=== PATIENT | male | born 1980 | race Caucasian/White ===

== ENCOUNTER 2021-01-27 22:38 | Emergency (ER) | payer OTHER, SELFPAY ==
--- NOTE | ~2021-01-27 | CT_ITS ---
EXAMINATION: CT abdomen pelvis wo con EXAM DATE: 01/27/2021 23:39 INDICATION: Flank pain, difficulty urinating. TECHNIQUE: Spiral CT of the abdomen and pelvis was performed without contrast. Axial, coronal and sag ittal images were reviewed. The dose-length product (DLP) for this examination was 336.83 mGy-cm. T he exposure was tailored according to patient size (auto mA exposure control), and iterative reconstr uction (ASIR) was used as additional dose reduction technique. There is no prior study for compariso n. FINDINGS: There is a punctate 1 mm stone in the left ureterovesicular junction with mild obstructive nephropathy. No other genitourinary calcifications. The prostate is unremarkable. The bladder is un remarkable. The liver, spleen, adrenal glands and pancreas are unremarkable. The gallbladder is con tracted but otherwise unremarkable. There is no retroperitoneal or pelvic lymphadenopathy. Small u mbilical fat-containing hernia. The appendix is normal. The stomach and small bowel are unremarkable. There is expected amount of c olonic stool. No free intraperitoneal gas. The heart is normal in size. There are no pericardial or pleural effusions. The lung bases are unremarkable. There are no osteoblastic or osteolytic les ions identified. IMPRESSION: 1. Punctate left UVJ stone, mild obstructive nephropathy. Reviewed, dictated and finalized at location G.
[2021-01-27 22:40] VITALS: BP 162/89; PULSE 89; RESP 24; TEMP 36.7; O2SAT 100
[2021-01-27 22:51] VITALS: BP 169/102; PULSE 70; RESP 19; O2SAT 97
--- NOTE | 2021-01-27 22:53 | ECG_ITS ---
Measurements Intervals [place] Rate: 68 P: 35 CT: 170 QRS: 41 QRSD: 106 T: 36 QT: 362 QTc: 386 Interpretive Statements SINUS RHYTHM BASELINE ARTIFACT- V5 NORMAL ECG Electronically Signed On 01-29-2021 7:28:19 CDT by Gilbert Gray D.O.
[2021-01-27] MEDS: ONDANSETRON INJ 4 MG/2 ML VIAL IV PUSH (23:42)
[2021-01-27] MEDS: SODIUM CHLORIDE 0.9% IV 1,000 ML 999 ML IV CONT (23:42)
[2021-01-27] MEDS: KETOROLAC 30 MG/ML VIAL (*BKC) IV PUSH (23:43)
[2021-01-27 23:47] LABS: Basophils Percent Auto 0.4 % (0.2-1.2); Eosinophils Absolute Auto 0.1 K/mm3 (0-0.3); Eosinophils Percent Auto 0.8 % (0-4.4); Hemoglobin 15.6 g/dL (14.0-18.0); Immature Granulocyte Absolute 0.07 K/mm3 (0.00-0.031); Immature Granulocyte Percent A 0.7 % (0-0.5); Lymphocytes Absolute Auto 1.93 K/mm3 (0.9-3.2); Lymphocytes Percent Auto 18.7 % (18.3-44.2); Mean Corpuscular HGB Conc 34.7 g/dl (32-36); Mean Corpuscular Hemoglobin 32.3 pg (26-34); Mean Corpuscular Volume 93.2 fl (80-100); Mean Platelet Volume 9.4 fl (7.4-10.4); Monocytes Absolute Auto 0.6 K/mm3 (0.1-0.6); Monocytes Percent Auto 6.2 % (2.6-8.5); Neutrophils Absolute Auto 7.6 K/mm3 (1.3-6.7); Neutrophils Percent Auto 73.2 % (45.5-73.1); Platelet Count Result 253 k/mm3 (150-375); Red Blood Count 4.83 M/mm3 (4.6-6.20); Red Cell Distribution Width 12.6 % (11.5-14.5); White Blood Count 10.3 K/mm3 (4.5-10.0)
[2021-01-28 00:02] LABS: Anion Gap 12 mmol/L (8-16); Blood Urea Nitrogen 19 mg/dL (9-20); Calcium 9.7 mg/dL (8.4-10.2); Carbon Dioxide 20 mmol/L (22-30); Chloride 106 mmol/L (98-107); Estimated CRCL calculation 116 ml/min; Estimated Glomerular Filt Rate > 60; Glucose 135 mg/dL (75-110); Potassium 3.8 mmol/L (3.4-5.0); Sodium 138 mmol/L (137-145)
[2021-01-28 00:29] VITALS: BP 133/79; PULSE 75; RESP 18; O2SAT 99
[2021-01-28 00:32] LABS: Add Urine Microscopic? YES; Appearance Urine Clear (Clear); Bacteria Urine Trace /hpf; Bilirubin Urine Negative (Negative); Blood Urine 2+ (Negative); Color Urine Yellow (Yellow); Glucose Urine UA Negative (Negative); Ketones Urine Negative (Negative); Leukocyte Esterase Ur Negative LEU/UL (Negative); Mucus Urine Rare /lpf; Nitrate Urine Negative (Negative); Protein Urine Negative (Negative); Specific Grav Ur 1.015 (1.001-1.035); Squamous Epithelial Cell Urine Rare /hpf (Few); Urobilinogen Urine Negative mg/dL (<2.0); WBC Urine 0-3 /hpf
--- NOTE | 2021-01-28 00:56 | ED.GENADULT ---
HPI - General Adult General Chief complaint: Abdominal Pain Stated complaint: Abdominal pain, urgency Time Seen by Provider: 01/27/21 22:44 History of Present Illness HPI narrative: Patient is a 40-year-old male who presents ER with urinary frequency. Ongoing for last several days. Spoke with his PCP and they placed him on antibiotics. Tonight he is having lower abdominal pain as well as nausea and near vasovagal episode while in triage. No fevers or chills or sweats. No chest pain or chest pressure. No alleviating factors at this time. Related Data Allergies Allergy/AdvReac Type Severity Reaction Status Date / Time No Known Allergies Allergy Unverified 02/28/15 13:48 Review of Systems Review of Systems: All systems reviewed & are unremarkable except as noted in HPI and below Constitutional: Constitutional: Denies chills and Denies fever(s) Cardiovascular: Cardiovascular: Denies chest pain and Denies radiating jaw, neck or arm pain Gastrointestinal: Gastrointestinal: Reports abdominal pain, Reports nausea and Denies vomiting Genitourinary: Genitourinary: Reports hematuria (Microscopic), Denies dysuria and Reports urinary frequency PMFSH Past Medical History Medical History (Updated 01/28/21 @ 01:00 by Jesus Alberto Edge MD) Healthy adult male Surgical History Surgical History (Updated 01/28/21 @ 00:57 by Jesus Alberto Edge MD) H/O left knee surgery Family History Family History (Updated 09/24/18 @ 09:03 by DOCTOR UNKNOWN) Father Family history of premature coronary heart disease Hypertension Family history of elevated blood lipids Mother Family history of malignant neoplasm of breast in first degree relative Social History Social History Smoking status: Current every day smoker Second hand tobacco smoke exposure: Yes Smoking end date: 07/29/07 Alcohol intake: current Exam Narrative: Exam Narrative: GENERAL: Uncomfortable-appearing, well-nourished, and in mild distress. HEAD: Normocephalic, atraumatic. EYES: PERRLA and EOMI. ENT: Mucous membranes moist. CHEST: Clear to auscultation. No respiratory distress. HEART: Regular rate and rhythm. Normal peripheral pulses. ABDOMEN: Soft, nontender, nondistended. EXTREMITIES: Normal range of motion. No edema. NEURO: Alert and oriented x3. PSYCH: Normal mood and affect. Course Course Emergency Course: Resting comfortably after medication. Discharge home with supportive care. Vital Signs Vital signs: Vital Signs Temperature 98.1 F 01/27/21 22:40 Pulse Rate 89 01/27/21 22:40 Respiratory Rate 24 H 01/27/21 22:40 Blood Pressure 162/89 H 01/27/21 22:40 Pulse Oximetry 100 01/27/21 22:40 Temperature 98.1 F 01/27/21 22:40 Pulse Rate 75 01/28/21 00:29 Respiratory Rate 18 01/28/21 00:29 Blood Pressure 133/79 01/28/21 00:29 Pulse Oximetry 99 01/28/21 00:29 Medical Decision Making Vital Signs Vital Signs: Vital Signs Temperature 98.1 F 01/27/21 22:40 Pulse Rate 89 01/27/21 22:40 Respiratory Rate 24 H 01/27/21 22:40 Blood Pressure 162/89 H 01/27/21 22:40 Pulse Oximetry 100 01/27/21 22:40 Temperature 98.1 F 01/27/21 22:40 Pulse Rate 75 01/28/21 00:29 Respiratory Rate 18 01/28/21 00:29 Blood Pressure 133/79 01/28/21 00:29 Pulse Oximetry 99 01/28/21 00:29 Lab Data Result diagrams: 01/27/21 23:39 01/27/21 23:39 Labs: Lab Results 01/27/21 01/27/21 01/28/21 Range/Units 23:39 23:39 00:16 WBC 10.3 H (4.5-10.0) K/mm3 RBC 4.83 (4.6-6.20) M/mm3 Hgb 15.6 (14.0-18.0) g/dL Hct 45.0 (42.0-52.0) % MCV 93.2 (80-100) fl MCH 32.3 (26-34) pg MCHC 34.7 (32-36) g/dl RDW 12.6 (11.5-14.5) % Plt Count 253 (150-375) k/mm3 MPV 9.4 (7.4-10.4) fl Immature Gran % (Auto) 0.7 H (0-0.5) % Neut % (Auto) 73.2 H (45.5-73.1) % Lymph % (Auto) 18.7 (18.3-44.2) % [place] % (Auto) 6.2 (2.
[2021-01-28 01:23] VITALS: BP 135/78; PULSE 77; RESP 22; O2SAT 100
== END 2021-01-28 01:25 | disposition home or self-care (01) ==
PROVIDERS: Emergency Provider Emergency Medicine; PCP Internal Medicine
DX: N13.8 Other obstructive and reflux uropathy (principal); N20.1 Calculus of ureter; Z87.891 Personal history of nicotine dependence
CPT/HCPCS: 36415; 74176; 80048; 81001; 85025; 93005; 96361; 96374; 96375; 99284; J1885; J2405; J7030